=== PATIENT | male | born 1985 | race Caucasian/White ===

== ENCOUNTER 2017-02-08 16:54 | Emergency (ER) | payer OTHER ==
[~2017-02-08] VITALS: Ht 185.4 cm; Wt 90.5 kg
[~2017-02-08 16:54] MED LIST: BUTA1CAP39 PO; SUMA100T4 PO
[2017-02-08 17:01] VITALS: Ht 185.4 cm; Wt 90.5 kg
[2017-02-08] MEDS ORDERED: SUMATRIPTAN 6 MG/0.5 ML INJ SC ONE (19:30)
[2017-02-08] MEDS ORDERED: IBUPROFEN 800 MG TAB PO ONE (19:30)
--- NOTE | 2017-02-08 20:26 | RADRPT ---
PROCEDURE: Portable chest x-ray. CLINICAL INDICATION: Chest pain. TECHNIQUE: Portable AP view of the chest. COMPARISON: None. FINDINGS: No pulmonary edema or conolidation is identified. The cardiac silhouette is magnified. No pleural effusion is seen. There is no pneumothorax. IMPRESSION: 1. No evidence of acute cardiopulmonary disease. RPTAT: HTAR .Hernan Chapin MD, MD Date Time Electronically viewed and signed by .Hernan Chapin MD, on 02/08/2017 20:26 .R/
[2017-02-08] MEDS ORDERED: IBUP-1542 PO (20:34)
[2017-02-08] MEDS ORDERED: ONDA4TAB14 PO (20:34)
--- NOTE | 2017-02-08 20:38 | ERD ---
ER Documentation Chief Complaint Date/Time DATE: 02/08/17 TIME: 20:36 Chief Complaint CHEST PAIN X 3-4 DAYS WITH MICHAELS HPI Patient is a 31-year-old male with migraine headaches who presents with chest pain. He has had 3 days of chest pain which has been coming and going. He said that he started with a headache today and feels like his usual migraine. So he now has headache and chest pain which made him come to the emergency department. He said he usually takes sumatriptan but did not today because he was concerned about the chest pain and did not know if he should take it. He says "but when I come to the emergency department I get Dilaudid". His primary doctor is Dr. Dumont. He has not called Dr. Dumont as of yet. Upon review of old medical records he has a few visits to the ER for various complaints. ROS All systems reviewed and are negative except as per history of present illness. Medications Home Meds Active Scripts Ondansetron (Ondansetron Odt) 4 Mg Tab.rapdis, 4 MG PO Q6H Y for NAUSEA AND/OR VOMITING, #30 TAB Prov:NAYANA CLAYTON MD 02/08/17 Ibuprofen* (Motrin*) 600 Mg Tab, 600 MG PO Q6H Y for PAIN AND OR ELEVATED TEMP, #30 TAB Prov:NAYANA CLAYTON MD 02/08/17 Sumatriptan Succinate* (Sumatriptan Succinate*) 100 Mg Tablet, 100 MG PO BID Y for HEADACHE, #20 TAB May repeat after 2 hours if needed; MAX 200 mg/24 hours Prov:KIANNA SANTA PA-C 11/06/15 Otkaufikyygxk-Dhkfawusvl-Gmbgroer-Codeine* (Fioricet w/ Codeine*) [id number]- 30MG Capsule, 1 CAP PO Q6H Y for HEADACHE, #5 CAP Prov:LUCAS LUA 11/04/15 Allergies Allergies: Coded Allergies: No Known Allergy (Unverified , 11/04/15) PMhx/Soc History of Surgery: No Anesthesia Reaction: No Hx Neurological Disorder: Yes (MIGRAINES) Hx Respiratory Disorders: No Hx Cardiac Disorders: No Hx Psychiatric Problems: No Hx Miscellaneous Medical Probl: No Hx Alcohol Use: No Hx Substance Use: No Hx Tobacco Use: No FmHx Family History: diabetes Physical Exam Vitals Vital Signs Date Time Temp Pulse Resp B/P Pulse Ox O2 Delivery O2 Flow Rate FiO2 02/08/17 17:01 99.2 104 18 146/79 99 Physical Exam Const: No acute distress Head: Atraumatic Eyes: Normal Conjunctiva ENT: Normal External Ears, Nose and Mouth. Neck: Full range of motion..~ No meningismus. Resp: Clear to auscultation bilaterally Cardio: Regular rate and rhythm, no murmurs Abd: Soft, non tender, non distended. Normal bowel sounds Skin: No petechiae or rashes Back: No midline or flank tenderness Ext: No cyanosis, or edema, 2+ pulses bilaterally Neur: Awake and alert Psych: Normal Mood and Affect Results 24 hrs Current Medications Medications (Trade) Dose Ordered Sig/Jose A Route PRN Reason Start Time Stop Time Status Last Admin Dose Admin Ibuprofen (Motrin) 800 mg ONCE ONCE PO 02/08/17 19:30 02/08/17 19:31 DC 02/08/17 19:39 Sumatriptan Succinate (Imitrex) 6 mg ONCE ONCE SC 02/08/17 19:30 02/08/17 19:31 DC 02/08/17 19:39 Procedures/MDM EKG read by me: Rate/Rhythm: Regular rate and rhythm at a normal rate Intervals: Normal Impression: No evidence of ischemia or arrhythmia Chest X-ray 1V Interpreted by me: Soft Tissue: No acute abnormalities Bones: No acute abnormalities Mediastinum/Cardiac Silhouette/Lungs: No acute abnormalities Patient is a 31-year-old male with migraine headaches who presents with headache and chest pain. His EKG and chest x-ray are normal. At this point I doubt acute coronary syndrome, pneumonia, pneumothorax, pulmonary embolism, or aortic dissection. I doubt intracranial hemorrhage or mass. I do not believe the patient requires further workup or admission to the hospital at this time. He was given sumatriptan subcutaneously and was offered [place] but he says "I cannot take that I have an allergy to it". I told him that we would not give him Dilaudid IV or IM as this would be against her chronic pain policy. The patient can follow-up with his primary doctor within 24-48 hours. He can return sooner for any worsening symptoms. Departure Diagnosis: Primary Impression: Chest pain Chest pain type: unspecified Qualified Code: R07.9 - Chest pain, unspecified type Additional Impression: Headache Headache type: unspecified Headache chronicity pattern: acute headache Intractability: not intractable Qualified Code: R51 - Acute nonintractable headache, unspecified headache type Condition: Fair Patient Instructions: Self-Care for Headaches, Chest Pain, Uncertain Cause Referrals: EMMANUEL DUMONT (PCP) Additional Instructions: Call your primary care doctor TOMORROW for an appointment during the next 1-2 days.See the doctor sooner or return here if your condition worsens before your appointment time. NAYANA CLAYTON MD Feb 08, 2017 20:38
[2017-02-08 20:51] VITALS: BP 137/93; PULSE 87; RESP 18; TEMP 98.5
== END 2017-02-08 20:51 | disposition home or self-care (01) ==
LOC: FTE 16:54
DX: R07.9 Chest pain, unspecified (principal); R51 Headache
CPT/HCPCS: 71010; 93005; 96372; J3030; Z7502; Z7610

== ENCOUNTER 2018-09-26 10:45 | Emergency (ER) | END 2018-09-26 13:09 | disposition home or self-care (01) ==

== ENCOUNTER 2018-10-20 12:07 | Emergency (ER) | END 2018-10-20 15:39 | disposition home or self-care (01) ==

== ENCOUNTER 2018-11-01 01:07 | Emergency (ER) | END 2018-11-01 04:04 | disposition home or self-care (01) ==